=== PATIENT | male | born 1960 | race Caucasian/White ===

== ENCOUNTER 2020-04-14 12:32 | Emergency (ER) | payer BC, SELFPAY ==
--- NOTE | ~2020-04-14 | CT_ITS ---
EXAMINATION: CT abdomen pelvis wo con DATE: 04/14/2020 14:59 INDICATION: Constipation. Difficulty urinating. TECHNIQUE: Computed tomography (CT) of the abdomen and pelvis was performed without intravenous contr ast. Automated exposure control and iterative reconstruction technique were employed. The dose-length product was 1109.48 mGy-cm. COMPARISON: None. FINDINGS: The visualized portions of the lung bases demonstrate mild atelectasis. No pleural effusion . The heart size is normal. No pericardial effusion. There is a small sliding hiatal hernia. The live r demonstrates surface nodularity, consistent with cirrhosis. There are gallstones in the gallbladder , which is normal in size. There is moderate splenomegaly measuring 15.9 cm, consistent with portal v enous hypertension. The pancreas, adrenal glands, and kidneys are normal. There is no urolithiasis. T he bladder is decompressed by a Dias catheter. Stool distends the rectum. The appendix is normal. Th e small bowel is normal in caliber. There is mild periportal and gastrohepatic lymphadenopathy, likel y reactive. There is no free intraperitoneal fluid. There is severe lumbar spondylosis. IMPRESSION: 1. Stool distends the rectum. 2. Cirrhosis of the liver with portal venous hypertension. 3. Mild abdominal lymphadenopathy, likely reactive. Reviewed, dictated and finalized at location A. [facility]
[2020-04-14 12:52] VITALS: BP 115/74; PULSE 89; RESP 20; TEMP 36.9; O2SAT 98
[2020-04-14 13:07] VITALS: BP 131/89; PULSE 94; RESP 16; TEMP 36.6; O2SAT 100
[2020-04-14 13:29] LABS: Basophils Absolute Auto 0.1 K/mm3 (0.0-0.1); Basophils Percent Auto 0.6 % (0.2-1.2); Eosinophils Absolute Auto 0.1 K/mm3 (0-0.3); Eosinophils Percent Auto 0.6 % (0-4.4); Hematocrit 44.9 % (42.0-52.0); Hemoglobin 16.2 g/dL (14.0-18.0); Immature Granulocyte Absolute 0.05 K/mm3 (0.00-0.031); Immature Granulocyte Percent A 0.4 % (0-0.5); Lymphocytes Absolute Auto 1.54 K/mm3 (0.9-3.2); Lymphocytes Percent Auto 13.4 % (18.3-44.2); Mean Corpuscular HGB Conc 36.1 g/dl (32-36); Mean Corpuscular Hemoglobin 33.7 pg (26-34); Mean Corpuscular Volume 93.3 fl (80-100); Mean Platelet Volume 10.4 fl (7.4-10.4); Monocytes Absolute Auto 0.8 K/mm3 (0.1-0.6); Platelet Count Result 128 k/mm3 (150-375); Red Blood Count 4.81 M/mm3 (4.6-6.20); Red Cell Distribution Width 13.6 % (11.5-14.5); White Blood Count 11.5 K/mm3 (4.5-10.0)
[2020-04-14 13:41] LABS: Alanine Aminotransferase 30 U/L (4-50); Albumin Level 4.3 g/dL (3.5-5.1); Alkaline Phosphatase 62 U/L (38-126); Anion Gap 8 mmol/L (8-16); Aspartate Amino Transferase 29 U/L (17-59); Bilirubin,Total 3.1 mg/dL (0.2-1.3); Blood Urea Nitrogen 17 mg/dL (9-20); Calcium 9.6 mg/dL (8.4-10.2); Carbon Dioxide 27 mmol/L (22-30); Chloride 105 mmol/L (98-107); Estimated CRCL calculation 83 ml/min; Estimated Glomerular Filt Rate > 60; Glucose 190 mg/dL (75-110); Potassium 4.3 mmol/L (3.4-5.0); Sodium 140 mmol/L (137-145)
[2020-04-14] MEDS: ACETAMINOPHEN 500 MG TABLET 1000 MG PO (15:49)
[2020-04-14 15:57] LABS: Add Urine Microscopic? YES; Appearance Urine Clear (Clear); Bacteria Urine Trace /hpf; Bilirubin Urine Negative (Negative); Blood Urine Negative (Negative); Calcium Oxalate Crystals Urine Present /hpf; Color Urine Yellow (Yellow); Glucose Urine UA Negative (Negative); Ketones Urine Negative (Negative); Leukocyte Esterase Ur Negative LEU/UL (Negative); Mucus Urine Rare /lpf; Nitrate Urine Negative (Negative); Protein Urine 1+ mg/dL (Negative); RBC Urine 0-2 /hpf (0-2); Specific Grav Ur 1.028 (1.001-1.035); WBC Urine 0-3 /hpf
--- NOTE | 2020-04-14 16:01 | PC.NURSE ---
1500 Unable to straight cath. met resistance. Coude catheter placed with 200ml of urine out at time of placement.
--- NOTE | 2020-04-14 17:18 | ED.ABDPAIN ---
HPI - Abdominal Pain General Chief Complaint: Urogenital-Male <Carina Hernandez PA-C - Last Filed: 04/14/20 18:07> Stated Complaint: unable to urniate <Carina Hernandez PA-C - Last Filed: 04/14/20 18:07> Time Seen by Provider: 04/14/20 13:06 <Carina Hernandez PA-C - Last Filed: 04/14/20 18:07> Source: patient <GAIL Butt Last Filed: 04/14/20 18:07> Mode of arrival: EMS <GIAL Butt Last Filed: 04/14/20 18:07> Limitations: no limitations <GAIL Butt Last Filed: 04/14/20 18:07> History of Present Illness HPI narrative: Patient presents with chief complaint of feeling as if he is having urinary retention as well as bowel movement retention since last night. Patient states he has a history of hemorrhoids but is not sure if he has a history of constipation. He has not taken any stool softeners to help with his bowel movements. Patient states he has been able to get out some urine but he feels as if there is more. Patient denies pain or burning with urination patient denies penile discharge or ulcers or injury. Patient reports some lower abdominal discomfort but denies nausea or vomiting. Patient has not had any fevers, chills, nausea, vomiting, diarrhea, black or tarry stools or vomiting. Patient denies history of prostate issues or issues with urine retention in the past. 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 <GAIL Butt Last Filed: 04/14/20 18:07> Related Data Home Medications: Home Medications Medication Instructions Recorded Confirmed Daily Multivitamin 04/14/20 fatty acid6-fish [id number] 04/14/20 lisinopril 10 mg PO DAILY 04/14/20 04/14/20 simvastatin 40 mg PO HS 04/14/20 04/14/20 <GAIL Butt Last Filed: 04/14/20 18:07> Allergies/Adverse Reactions: Allergies Allergy/AdvReac Type Severity Reaction Status Date / Time Penicillins Allergy Unknown Verified 04/14/20 13:20 <Carina Hernandez PA-C - Last Filed: 04/14/20 18:07> Review of Systems Review of Systems: Narrative: CONSTITUTIONAL: Denies fever, chills, or sweats. EYES: Denies visual changes, redness, or discharge. ENT: Denies rhinorrhea, congestion, sore throat, or otalgia. CARDIOVASCULAR: Denies chest pain, palpitations, or edema. RESPIRATORY: Denies cough or dyspnea. GASTROINTESTINAL: Reports constipation and mild lower abdominal pain denies nausea, vomiting, or diarrhea. GENITOURINARY: Reports feelings of urinary retention denies dysuria or hematuria. SKIN: Denies rash or itching. MUSCULOSKELETAL: Denies back pain, joint pain, or myalgia. NEUROLOGIC: Denies headache, numbness, dizziness, or weakness. PSYCHIATRIC: Denies anxiety or depression. <Carina Hernandez PA-C - Last Filed: 04/14/20 18:07> [facility] Social History Social History: Social History Gender identity (if verbalized by the patient): Male <Carina Hernandez PA-C - Last Filed: 04/14/20 18:07> Exam Narrative: Exam Narrative: Exam shows: Well-appearing, well-nourished, and in no acute distress. Patient not appear to be in any discomfort or distress. HEAD: Normocephalic, atraumatic. EYES: PERRLA and EOMI. NECK: Supple. No adenopathy or masses. CHEST: Clear to auscultation. No respiratory distress. No wheezes rales or rhonchi HEART: Regular rate and rhythm. No murmur heard. Normal peripheral pulses. ABDOMEN: Soft, patient reports diffuse lower abdominal tenderness, patient's abdomen is obese but not rigid or hard. Ascites not appreciated, normal active bowel sounds. Rectal exam shows diffuse nonthrombosed hemorrhoids. There is soft light-colored stool in and around patient's rectum EXTREMITIES: Normal range of motion. No edema. SKIN: Warm, dry, no rash. NEURO: No focal deficits. Alert and oriented x3. PSYCH: Normal mood and affect. <Carina Hernandez PA-C - Last Filed: 04/14/20 18:07> Course Vital Signs Vital signs:
[2020-04-14 18:28] VITALS: BP 106/77; PULSE 88; RESP 18; TEMP 36.4; O2SAT 97
--- NOTE | 2020-04-14 18:32 | PC.NURSE ---
1800 pt herrera catheter removed per pt request on discharge. Refusal of herrera catheter signed by pt. Pt instructed to return to the ED if he continues to have urinary retention.
== END 2020-04-14 18:28 | disposition home or self-care (01) ==
PROVIDERS: Physician Assistant; Emergency Provider General Practice
DX: R33.9 Retention of urine, unspecified (principal); K59.00 Constipation, unspecified; K74.60 Unspecified cirrhosis of liver; K76.6 Portal hypertension
CPT/HCPCS: 36415; 51701; 74176; 80053; 81001; 85025; 99284; A9270